=== PATIENT | female | born 1995 | race Caucasian/White ===

== ENCOUNTER 2017-01-05 14:02 | Emergency (ER) | payer BC ==
--- NOTE | ~2017-01-05 | EKG ---
PATIENT: DUKE MAJOR UNIT #: [id number] Ventricular Rate: 105 BPM Atrial Rate: 105 BPM P-R Interval: 144 ms QRS Duration: 80 ms Q-T Interval: 310 ms QTC Calculation(Bezet): 409 ms P Pinole: 53 degrees Calculated R Pinole: 56 degrees Calculated T Pinole: 20 degrees Diagnosis Line: Sinus tachycardia Diagnosis Line: Otherwise normal ECG Diagnosis Line: When compared with ECG of 02-AUG-2015 13:52, Diagnosis Line: No significant change was found Diagnosis Line: Confirmed by SHYALEE BAZZI MD ([id number]) on 01/05/2017 Diagnosis Line: 4:48:23 PM INTERPRETING MD: JLUIS LINTON
--- NOTE | ~2017-01-05 | CT71 ---
[facility] A Service [facility] RADIOLOGY TEXT RESULTS PATIENT: DUKE MAJOR LOCATION: RAJWINDER : [birth year] UNIT #: [id number] AGE: [address]: Francisco Dozier MD SEX: F ORDER DR: [id number] [facility]. [place], [place] [address] [id number] E MR#: [id number] Acc #: [id number] NAME: DUKE MAJOR : 1995 SEX: F STUDY DATE/TIME: 01/05/2017 15:04 UNIT: [employer] ROOM: STUDY DESCRIPTION: CT Head Wo Contrast Attending Physician: Francisco Dozier M.D. Ordering Physician: [facility] Primary Care Physician: Mary Guardado M.D. MEDICAL IMAGING REPORT This report is preliminary unless electronic signature is present EXAM Noncontrast CT head 01/05/2017 HISTORY Possible seizure. New onset today. COMPARISON None. TECHNIQUE This CT exam was performed with one or more of the following radiation dose reduction techniques: automatic exposure control, adjustment of mA and/or kV according to patient size, and iterative reconstruction. FINDINGS No acute intracranial hemorrhage, mass lesion, mass effect, midline shift or evidence of acute or evolving infarct. Calvaria is normal. Mild ethmoid sinus mucosal thickening. Mastoid air cells are clear. IMPRESSION 1. No acute intracranial findings. Dictated by... Tawana Thomason M.D. THIS IS AN ELECTRONICALLY VERIFIED REPORT Tawana Thomason M.D. at 01/07/2017 7:02 PM LLH/pcl TD: 01/05/2017 21:47 [facility] A Service [facility] RADIOLOGY TEXT RESULTS PATIENT: DUKE MAJOR LOCATION: RAJWINDER : [birth year] UNIT #: [id number] AGE: [address]: Francisco Dozier MD SEX: F ORDER DR: JOB #: [id number] MEDICAL IMAGING REPORT COPY
[2017-01-05 13:58] LABS: BASOPHIL# 0.1 X10e3 (0-0.3); EOSINOPHIL# 0.4 X10e3 (0-0.7); EOSINOPHIL% 4.6 % (0.0-7.0); HEMATOCRIT 42.5 % (35.0-45.0); HEMOGLOBIN 14.2 gm/dL (12.0-16.0); LYMPHOCYTE# 1.9 X10e3 (1.0-3.5); LYMPHOCYTE% 21.2 % (17.0-45.0); MEAN CELL VOLUME 88.8 FL (83-96); MEAN CORPUSCULAR HEMOGLOBIN 29.7 PG (28-34); MEAN CORPUSCULAR HGB CONC 33.5 g/dL (30-36); MEAN PLATELET VOLUME 7.7 FL (6.5-11.5); MONOCYTE# 0.8 X10e3 (0-1.0); MONOCYTE% 8.8 % (3.0-12.0); NEUTROPHIL# 5.7 X10e3 (1.5-7.1); NEUTROPHIL% 64.4 % (40-75); PLATELET COUNT 282 X10e3 (140-420); RED BLOOD COUNT 4.79 X10e (3.90-5.30); RED CELL DISTRIBUTION WIDTH 13.5 % (11.0-15.5); WHITE BLOOD COUNT 8.8 X10e3 (4.0-10.5)
[~2017-01-05 14:02] MED LIST: AUGMENTIN PO
[2017-01-05 14:06] LABS: DIFF IND NO
[2017-01-05 14:27] LABS: ALKALINE PHOSPHATASE 65 U/L (32-92); ALT (SGPT) 28 U/L (10-40); AST (SGOT) 24 U/L (10-42); BILIRUBIN, DIRECT 0.1 mg/dL (0.0-0.2); BILIRUBIN,INDIRECT 0.5 mg/dL (0.0-0.9); BILIRUBIN,TOTAL 0.6 mg/dL (0.2-2.0); BLOOD UREA NITROGEN 7 mg/dL (9-23); BUN/CREATININE RATIO 8.75; CALCIUM SERUM 9.4 mg/dL (8.4-10.2); CARBON DIOXIDE 23 mmol/L (22-31); CHLORIDE 107 mmol/L (100-111); CREATININE SERUM 0.8 mg/dL (0.6-1.4); GLOM FILT RATE Estimated ABOVE60 mL/min (>60); GLUCOSE FASTING 78 mg/dL (70-110); POTASSIUM 4.1 mmol/L (3.5-5.1); PROTEIN TOTAL SERUM 7.5 g/dL (6.0-8.3); SODIUM 138 mmol/L (135-145)
[2017-01-05 14:50] LABS: URINE SOURCE CLEAN CATCH
[2017-01-05 14:59] LABS: URINE APPEARANCE CLEAR; URINE BILIRUBIN NEG (NEG); URINE BLOOD NEG (NEG); URINE COLOR YELLOW; URINE GLUCOSE NEG (NEG); URINE KETONE NEG (NEG); URINE LEUKOCYTE ESTERASE NEG (NEG); URINE NITRATE NEG (NEG); URINE PROTEIN NEG (NEG); URINE SPECIFIC GRAVITY 1.016 (1.003-1.035); URINE UROBILINOGEN 0.2 MG/DL (NEG)
[2017-01-05 15:06] LABS: CULTURE INDICATED? NO
[2017-01-05 15:19] LABS: AMPHETAMINE NEG (NEG); BARBITURATES NEG (NEG); BENZODIAZEPINES NEG (NEG); COCAINE NEG (NEG); MARIJUANA POS (NEG); OPIATES NEG (NEG); TRICYCLIC ANTIDEPRESSANTS NEG (NEG); U METHADONE NEG (NEG)
== END 2017-01-05 16:38 | disposition home or self-care (01) ==
LOC: CED 14:02
PROVIDERS: Emergency Medicine
DX: R56.9 Unspecified convulsions (principal); F41.9 Anxiety disorder, unspecified; F31.9 Bipolar disorder, unspecified; J45.909 Unspecified asthma, uncomplicated; F17.200 Nicotine dependence, unspecified, uncomplicated; Z88.2 Allergy status to sulfonamides
CPT/HCPCS: 36415; 70450; 80048; 80076; 80307; 81003; 82947; 84703; 85025; 93005; 96360; 99284

== ENCOUNTER → 2017-01-24 | Outpatient (CLI) | payer BC ==
--- NOTE | ~2017-01-24 | MR17 ---
[facility] A Service of [facility] RADIOLOGY TEXT RESULTS PATIENT: DUKE MAJOR LOCATION: [facility] : [birth year] UNIT #: [id number] AGE: [address]: Mary Guardado MD SEX: F ORDER DR: [id number] [facility] [address] [place], [place] [address] [id number] O MR#: [id number] Acc #: [id number] NAME: DUKE MAJOR : 1995 SEX: F STUDY DATE/TIME: 01/24/2017 9:53 UNIT: [facility] ROOM: STUDY DESCRIPTION: MR Brain WWo Contrast Attending Physician: Mary Guardado M.D. Referring Physician: Mary Guardado M.D. Ordering Physician: Mary Guardado M.D. Primary Care Physician: Mary Guardado M.D. MRI CENTER REPORT This report is preliminary unless electronic signature is present. EXAM Brain MR with and without contrast, 01/24/[address] dated 01/05/2017 PROCEDURE Routine brain MR with and without contrast HISTORY New onset seizure on January 05. FINDINGS There is no MR evidence of recent ischemia or other restricted diffusion. The brain is overall structurally normal. Bone marrow signal is normal. There is no evidence of acute or chronic intracranial hemorrhage. There is no evidence of developmental anomaly or other potential seizure focus. The hippocampal formations are normal and symmetric in size and signal. Brain parenchymal signal is normal. Normal flow voids are seen in the cerebral vessels. There is some slight sphenoid sinus mucosal thickening on the left. Postcontrast images show no evidence of mass or abnormal enhancement. IMPRESSION Normal brain MRI with and without contrast including normal negative seizure protocol imaging. Dictated by... Kostas Arnold M.D. THIS IS AN ELECTRONICALLY VERIFIED REPORT Kostas Arnold M.D. at 01/25/2017 1:51 PM [facility] A Service of [facility] RADIOLOGY TEXT RESULTS PATIENT: DUKE MAJOR LOCATION: CMRI : 93 UNIT #: [id number] AGE: [address]: Mary Guardado MD SEX: F ORDER DR: Priya TD: 01/25/2017 11:04 JOB #: [id number] MRI CENTER REPORT Page 1 of 1 COPY
--- NOTE | ~2017-01-24 | EE ---
Unit #: [id number] #: [id number] Patient: DUKE MAJOR [id number] [address] [address] [id number] O MR#: [id number] NAME: DUKE MAJOR : 1995 SEX: F STUDY DATE/TIME: 01/24/2017 UNIT: [facility] ROOM: STUDY DESCRIPTION: EEG Attending Physician: Mary Guardado M.D. Referring Physician: Mary Guardado M.D. Primary Care Physician: Mary Guardado M.D. NEURODIAGNOSTICS REPORT EXAM EEG REASON FOR THE STUDY New onset seizure. EEG DESCRIPTION This is an outpatient, digitally recorded multi-montage adult EEG with leads placed according to the International 10-20 System. Hyperventilation and photic stimulation was attempted. There is no prior EEG available. With the patient fully aroused, there is 10 to 11 Hz posterior dominant alpha rhythm which is symmetric and attenuates with eyes opening. The patient did become drowsy and later on stage 2 sleep was seen. Hyperventilation was attempted but I really did not see any significant changes. There may be some slowing on the left side. Photic stimulation was attempted in intermittent stepwise pattern up to the flash frequency of 3 Hz but I did not see any driving, asymmetry or paroxysmal activity. The important and dominant feature of this EEG are some transients which look like phase reversing in between F7 and T5. P3 corrects to that. They are concerning for phase reversing definitely, otherwise, transients were seen. IMPRESSION I am concerned this is an abnormal EEG with some focal features on the left side and especially the frontotemporal region. There were some transients but, otherwise, the possibility for abnormality is seen so definitely please clinical correlate with the patient's history and imaging studies and, based on what I am seeing today, I am call it focally abnormal with possibility of irritable foci and epileptiform-type discharges. Dictated by..Antonietta Webb M.D. Unit #: [id number] #: [id number] Patient: DUKE MAJOR AHB/df TD: 01/25/2017 10:55 JOB #: [id number] NEURODIAGNOSTICS REPORT Page 1 of 1 X Yin Webb MD NEURODIAGNOSTICS REPORT
== END | disposition home or self-care (01) ==
LOC: CMRI 09:03
DX: R56.9 Unspecified convulsions (principal); R94.01 Abnormal electroencephalogram [EEG]
CPT/HCPCS: 70553; 95816; A9577